=== PATIENT | female | born 1945 | race Caucasian/White ===

== ENCOUNTER 2017-03-11 20:29 | Emergency (ER) | payer OTHER, MEDICARE ==
[2017-03-11 20:34] VITALS: BP 137/69; PULSE 89; RESP 20; TEMP 98; O2SAT 97
[2017-03-11] MEDS ORDERED: SIMV40TA PO (20:44)
[2017-03-11] MEDS ORDERED: LORA-373 PO (20:44)
[2017-03-11] MEDS ORDERED: MELO-1 PO (20:44)
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
--- NOTE | 2017-03-11 21:48 | RADRPT ---
EXAM DATE/TIME: 03/11/2017 21:15 [facility] COMPARISON: No previous studies available for comparison. INDICATIONS : Left knee pain. MEDICAL HISTORY : None. SURGICAL HISTORY : None. ENCOUNTER: Initial ACUITY: 2 days PAIN SCORE: 4/10 LOCATION: Left knee. FINDINGS: Four view examination of the left knee demonstrates no evidence of fracture or dislocation. Bony min eralization is normal. The articular surfaces are intact. The suprapatellar soft tissues have a nor mal configuration. CONCLUSION: No acute disease. Pato Anderson MD on March 11, 2017 at 21:46 Board Certified Radiologist. This report was verified electronically.
== END 2017-03-11 22:12 | disposition home or self-care (01) ==
LOC: PHEFT 20:29
DX: S80.02XA Contusion of left knee, initial encounter (principal); V49.40XA Driver injured in collision with unspecified motor vehicles in traffic accident, initial encounter
CPT/HCPCS: 73564; 99283

== ENCOUNTER → 2017-09-05 | Outpatient (CLI) | payer MEDICARE ==
[~2017-09-05] MED LIST: LORA0.5T PO; MELO15TA20 PO; SIMV40TA PO
--- NOTE | 2017-09-06 09:23 | RSPPFT ---
DATE OF PROCEDURE: 09/05/17 COMMENTS: Spirometry shows FVC of 2.1 at 85% of predicted, FEV1 of 1.6 at 84%, FEV1/FVC ratio is normal. Flow is normal at FEF 25, FEF 50, FEF 75 and FEF 25-75. There is no response after bronchodilator treatment. Lung volumes show residual volume is normal. TLC is normal. Diffusion capacity is normal. Flow volume loop indicates a normal pattern. Blood gases show pH of 7.3, PCO2 of 41, PO2 of 106, BiCarb of 24, O2 Saturation at 96%. 6-minute walk test shows no de-saturation. IMPRESSION: 1. Normal spirometry. 2. No response after bronchodilator treatment. 3. Normal lung volumes. 4 Normal diffusion capacity. 5. Blood gases show normal oxygenation on room air. 6. 6-minute walk test shows no de-saturation
== END ==
LOC: PHRSP 11:09
PROVIDERS: ATTEND Specialist
DX: J84.10 Pulmonary fibrosis, unspecified (principal)
CPT/HCPCS: 36600; 82805; 94060; 94618; 94726; 94729